=== PATIENT | female | born 1970 | race Caucasian/White ===

== ENCOUNTER 2025-01-27 06:32 | Day surgery (SDC) | payer OTHER ==
[~2025-01-27] VITALS: Ht 154.9 cm; Wt 75.5 kg
[2025-01-27] MEDS ORDERED: ESTRADIOL (06:58)
[2025-01-27] MEDS ORDERED: propofoL 50 ML IV ONE (07:32)
[2025-01-27] MEDS ORDERED: Lactated Ringer's 1,000 ML IV ONE ×2 (07:32→07:54)
[2025-01-27 09:09] VITALS: BP 111/69
== END 2025-01-27 09:06 | disposition home or self-care (01) ==
LOC: ORSCSDS 06:32
PROVIDERS: Surgery
PROC: 0DJD8ZZ Inspection of Lower Intestinal Tract, Via Natural or Artificial Opening Endoscopic (ICD-10-PCS; principal; 2025-01-27 08:00)
DX: Z12.11 Encounter for screening for malignant neoplasm of colon (principal)
CPT/HCPCS: J2704; J7120